=== PATIENT | male | born 1980 | race African-American/Black ===

== ENCOUNTER → 2020-07-23 | Outpatient (CLI) | payer OTHER | END | disposition home or self-care (01) | LOC: RAD 13:36 | PROVIDERS: ATTEND Nurse Practitioner Family | DX: S92.061A Displaced intraarticular fracture of right calcaneus, initial encounter for closed fracture (principal); M85.871 Other specified disorders of bone density and structure, right ankle and foot; X58.XXXA Exposure to other specified factors, initial encounter; Y93.89 Activity, other specified; Y92.89 Other specified places as the place of occurrence of the external cause; Y99.8 Other external cause status ==